=== PATIENT | female | born 1935 | race Caucasian/White ===

== ENCOUNTER 2018-05-30 13:05 | Observation (INO) ==
--- NOTE | 2018-05-30 13:10 | Emergency Department Note ---
ED Disposition Clinical Impression: Heat exhaustion, Vomiting Disposition: Still a Patient Condition on Discharge: Fair - Critical Care Critical Care Time: No Attestation: On , the high probability of a clinically significant, sudden or life threatening deterioration of the following system(s) required my full and direct attention, intervention and personal management. The time I documented below is in addition to time spent performing reported procedures but includes the following listed in this critical care notation. Medical Decision Making - [place] Inquiry Pt receiving controlled substance: No [place] was queried for this patient: No Vital Signs: 05/30/18 13:05 Temperature 98.3 F Temperature Source Oral Pulse Rate [Radial] 16 L Respiratory Rate 20 Blood Pressure [Right Arm] 131/59 Blood Pressure Mean [Right Arm] 83 Blood Pressure Source [Right Arm] Automatic Cuff Blood Pressure Position [Right Arm] Sitting 02 Sat by Pulse Oximetry 95 Oxygen Delivery Method Room Air - Lab Data Lab Results 05/30/18 13:15: WBC 7.4, RBC 4.97, Hgb 15.4, Hct 48.6 H, MCV 97.7, MCH 31.0, MCHC 31.7 L, RDW 12.7, Plt Count 317, MPV 7.9, Neut % (Auto) 74.8, Lymph % (Auto ) 18.1, [place] % (Auto) 4.7, Eos % (Auto) 1.8, Baso % (Auto) 0.6, Neut # (Auto) 5.5, Lymph # (Auto) 1.3, [place] # (Auto) 0.4, Eos # (Auto) 0.1, Baso # (Auto) 0.0 05/30/18 13:15: Sodium 138, Potassium 4.2, Chloride 103, Carbon Dioxide 27, Anion Gap 12.2, BUN 25 H, Creatinine 1.16 H, Estimated Creat Clear 32, Estimated GFR 45 L, Est GFR ( Amer) 54 L, Glucose 161 H, Calcium 9.3, Total Bilirubin 0.4, AST 30, ALT 91 H, Alkaline Phosphatase 85, Total Protein 8.2, Albumin 3.7, Globulin 4.5 H, Albumin/Globulin Ratio 0.8 L 05/30/18 13:15: PT 9.8, INR 0.95, APTT 24.4 05/30/18 13:15: Magnesium 2.2, Total Creatine Kinase 136, CK-MB (CK-2) 2.2, CK- MB (CK-2) Rel Index 1.6, Troponin I < 0.02 05/30/18 13:15: Lactic Acid 1.1 05/30/18 13:15: Acetone Level None detected 05/30/18 13:25: Specimen Source Right radial, O2 % 28% nc, ABG pH 7.44, ABG pCO2 36.8, ABG pO2 67.9 L, ABG HCO3 24.3, ABG Total CO2 25.4, ABG O2 Saturation 94, ABG Base Excess 0.1, [place] Test Acceptable Result diagrams: 05/30/18 13:15 05/30/18 13:15 Orders (Tests/Meds): ED MEDICATIONS Discontinued Medications Generic Name Dose Route Start Last Admin Trade Name Freq PRN Reason Stop Dose Admin Sodium Chloride 1,000 mls @ 999 mls/hr 05/30/18 13:15 05/30/18 14:22 Sod Chlor 0.9% 1000ml Bag IV 05/30/18 14:15 999 mls/hr .Q1H1M KAYLI Administration ORDERS Category Date Time Status Acute abdomen XR series [XR acute abdomen series] Stat Exams 05/30/18 13:12 Taken Urinalysis and Microscopic Stat Lab 05/30/18 13:07 Ordered ECG Request by /Ashlyn Stat Y 05/30/18 13:11 Ordered - Radiology Data #1 Image(s): Chest, Abdomen Image Reviewed: Yes I reviewed the patient's radiology image Chest x-ray shows postop changes no acute findings. Abdominal x-ray positive constipation no free air no fluid level. - CT Data CT Scan: Head Time Received: 14:[address] Reviewed: Yes: I have viewed the radiologist's interpretation Medical Decision Narrative: The patient remained stable I called her primary care physician Dr. connor discussed with him her presentation and possible heat exhaustion he agreed to admit her for IV fluid therapy and possible social service assistant,. Nausea/Vomiting/Diarrhea HPI - General Stated complaint: Nausea Time Seen by Provider: 05/30/18 13:07 Mode of Arrival: EMS Source of Information: Patient, Relative - History of Present Illness HPI Narrative: 83 years old white female with history of valve replaced, hypertension hyperlipidemia and diabetes. Status post cholecystectomy appendectomy and hysterectomy. 2 weeks ago she fell and had a contusion on the right forehead, 5 days ago she started vomiting of green material with no hemoptysis no hematemesis no coffee-ground emesis no melanotic stool no bleeding per rectum. She she denies have diarrhea. He has missed her appointment with Dr. connor. She lives with her and and on air-conditioned house and he is awaiting heart surgery. Per EMS the house was too high the temperature was 105 inside the house. MD complaint: nausea, vomiting Onset (ago): day(s) (5 days) Description of Vomiting: bilious Associated Abdominal Pain: No Consistency: intermittent Relieving factors: none Exacerbating factors: none Associated symptoms: denies other symptoms - Related Data Home Medications Medication Instructions Recorded Confirmed Gabapentin [Gabapentin 300mg Cap] 300 mg PO TID 05/30/18 05/30/18 Hydrocod/Acet 5/325 mg [[place] 1 tab PO Q4HP PRN 05/30/18 05/30/18 5/325mg tablet] Insulin Aspart [Novolog] 1 dose SQ BID 05/30/18 05/30/18 Insulin Detemir [Levemir 100 1 dose SQ ACHS 05/30/18 05/30/18 units/mL 10mL vial] Lisinopril [Lisinopril 2.5mg Tab] 2.5 tab PO DAILY 05/30/18 05/30/18 diazePAM [Valium 2mg tablet] 2 mg PO DAILY 05/30/18 05/30/18 Allergies Allergy/AdvReac Type Severity Reaction Status Date / Time Penicillins [PENICILLINS] Allergy Intermediate I-RASH Verified 05/30/18 13:54 [facility] History I have reviewed the patient's past medical history: Yes ROS Obtained: Yes All systems reviewed & no additional complaints Physical Exam - General General appearance: alert, in no apparent distress - Head Head exam: normocephalic, normal inspection, other (There are old bruising on the right forehead. ) - Eye Eye exam: Present: normal appearance, PERRL, EOMI - ENT ENT exam: Present: normal exam, normal oropharynx, mucous membranes moist, TM's normal bilaterally, normal external ear exam, other (There is abrasions on the right earlobe due to titching and secondary to bug bite) - Neck Neck exam: Present: normal inspection, full ROM, trachea midline. Absent: meningismus, lymphadenopathy - Chest Chest inspection: Present: normal inspection, symmetric chest wall rise. Absent : tenderness - Respiratory Respiratory exam: Present: normal lung sounds bilaterally. Absent: respiratory distress - Cardiovascular Cardiovascular exam: Present: regular rate, normal rhythm. Absent: JVD - Abdominal Exam Abdominal exam: Present: soft, normal bowel sounds, other (Soft obese nontender with the scars of previous surgeries no guarding no rigidity no focal tenderness no rebound no cross tenderness. ). Absent: distention, tenderness, guarding, rebound, rigidity, tenderness at [place]'s Point - External exam: Present: normal external exam - Extremities Exam Extremities exam: Present: normal inspection, full ROM, normal capillary refill. Absent: calf tenderness - Back Exam Back exam: Present: normal inspection. Absent: tenderness - Neurological Exam Neurological exam: Present: alert, oriented X3, CN II-XII intact, motor sensory deficit, reflexes normal - Psychiatric Psychiatric exam: Present: normal affect, normal mood - Skin Skin exam: Present: warm, dry, intact, normal color - Lymphatic Lymphatic Findings: no adenopathy
[2018-05-30 13:30] LABS: ABG Base Excess 0.1 mmol/L (-2.4-2.3); ABG HCO3 24.3 mmhg (22.0-26.0); ABG Oxygen Saturation 94 % (90-100); ABG PCO2 36.8 mmhg (35.0-45.0); ABG PH 7.44 mmol/L (7.35-7.45); ABG PO2 67.9 mmhg (80-100); ABG TCO2 25.4 mmhg (23-27)
[2018-05-30 13:31] LABS: Basophils % 0.6 % (0.1-2.0); Eosinophils # 0.1 K/mm3 (0.0-0.4); Eosinophils % 1.8 % (0.1-12.0); Hematocrit 48.6 % (37.0-47.0); Hemoglobin 15.4 g/dL (12.2-16.2); Lymphocytes # 1.3 K/mm3 (0.7-4.5); Lymphocytes % 18.1 K/mm3 (10-50); Mean Corpuscular HGB Conc 31.7 g/dL (31.8-35.4); Mean Corpuscular Volume 97.7 fl (81-99); Mean Platelet Volume 7.9 fl (7.4-10.4); Monocytes # 0.4 K/mm3 (0.1-1.0); Monocytes % 4.7 % (1.7-9.3); Neutrophils # 5.5 K/mm3 (1.8-7.8); Neutrophils % 74.8 % (37.0-80.0); Platelet Count 317 K/mm3 (142-424); Red Blood Count 4.97 M/mm3 (4.20-5.40); Red Cell Distribution Width 12.7 % (11.5-17.5); White Blood Count 7.4 K/mm3 (4.8-10.8)
[2018-05-30 13:33] LABS: Allen's Test Acceptable; Oxygen 28% NC %
[2018-05-30 13:40] LABS: Activated Partial Thrombo Time 24.4 seconds (23.6-34.0); INR 0.95 (0.9-1.1); Prothrombin Time 9.8 seconds (9.4-11.8)
[2018-05-30 13:43] LABS: Albumin Level 3.7 gm/dL (3.4-5.0); Albumin/Globulin Ratio 0.8 (1.1-1.8); Anion Gap 12.2 mEq/L (5-15); Bilirubin,Total 0.4 mg/dL (0.2-1.0); Calcium 9.3 mg/dL (8.5-10.1); Globulin 4.5 gm/dl (1.3-3.2); Potassium 4.2 mmoL/L (3.5-5.1); Total Protein,Serum 8.2 gm/dL (6.4-8.2)
[2018-05-30 13:53] LABS: Creatine Kinase 136 U/L (26-192)
--- NOTE | 2018-05-30 21:47 | History & Physical Report ---
*Admission Date: 05/30/18 *Chief complaint: Vomiting *History of present illness: This 82-year-old white female is diabetic and has chronic back pain. She states that she started vomiting 6 days ago. She says she may have vomited 20 times yesterday and 5 today before she presented in the emergency room. When the ambulance came to her house to pick her up the temperature in the house was reported to be 105. Her is also ill and awaiting heart surgery. She has a long medication list. She states that her sugars have not been bad lately but that she has not been eating much at all. [facility] History Medical History: Reports:: Atherosclerotic Heart Disease, Chronic Obstructive Pulmonary Disease (COPD), Coronary Artery Disease, Dementia (Mild. Treated with Namenda and Aricept), Diabetes Mellitus Type 2, Hypertension Denies:: Diabetes Mellitus Type 1 Other Medical History: Reports: Arthritis, Osteoporosis (With vertebral fractures), Thyroid Disease (Takes levothyroxine 50 mcg) Other Surgeries: Yes: BSO, Cardiac Catheterization, Colonoscopy, Coronary Stent , Hysterectomy-Partial Fractures: Yes (Ankle with pinning 2000. Shoulder repair 2004. Left shoulder fracture Jun) - *Social History Smoking Status: Current every day smoker Tobacco Type: cigarettes # Packs/Day (cigarettes): 1 Alcohol Intake: never Substance Use Type: denies use - Psychiatric History Expresses thoughts of harming self/others: None Suicide Plan Description: No Plan *Family Hx:: Coronary Artery Disease Comment: Her son of myocardial infarction. Her mother in childbirth. Review of Systems - Constitutional Reports anorexia, Reports weakness, Denies chills, Denies fever(s) - Eyes Denies change in vision - ENT Denies mouth lesions, Denies pain with swallowing - *Cardiovascular Reports shortness of breath, Reports shortness of breath with activity, Denies chest pain - *Respiratory Reports shortness of breath with activity, Denies chest congestion - *Gastrointestinal Reports abdominal pain, Reports change in bowel habits (Infrequent stooling. Some looseness), Reports vomiting - *Genitourinary Reports urinary incontinence - *Musculoskeletal Reports back pain, Reports deformity, Reports neck pain - Integumentary/Breasts Reports bleeding lesions, Denies yellowing of the skin Comments: Of the scalp. Nursing reported head lice. - *Neurologic Reports unsteadiness, Reports memory loss, Reports weakness, Denies seizure- like activity - Psychiatric Reports anxiety, Reports depression, Reports memory loss - Endocrine Denies increased thirst, Denies increased urination - Hematologic/Lymphatic Reports easy bruising - Allergic/Immunologic Denies itchy eyes, Denies lip swelling Meds Home Medications Medication Instructions Recorded Confirmed Type Gabapentin [Gabapentin 300mg Cap] 300 mg PO TID 05/30/18 05/30/18 History Hydrocod/Acet 5/325 mg [[place] 1 tab PO Q4HP PRN 05/30/18 05/30/18 History 5/325mg tablet] Insulin Aspart [Novolog] 1 dose SQ BID 05/30/18 05/30/18 History Insulin Detemir [Levemir 100 1 dose SQ ACHS 05/30/18 05/30/18 History units/mL 10mL vial] Lisinopril [Lisinopril 2.5mg Tab] 2.5 tab PO DAILY 05/30/18 05/30/18 History Memantine HCl [Memantine 10mg 10 mg PO BID 05/30/18 05/30/18 History Tablet] diazePAM [Valium 2mg tablet] 2 mg PO DAILY 05/30/18 05/30/18 History Allergies Allergy/AdvReac Type Severity Reaction Status Date / Time Penicillins [PENICILLINS] Allergy Intermediate I-RASH Verified 05/30/18 13:54 Exam Vital signs and Labs for Last 24 Hours: Temp Pulse Resp BP Pulse Ox 98.2 F 61 18 132/90 93 L 05/30/18 20:00 05/30/18 20:00 05/30/18 20:00 05/30/18 20:00 05/30/18 20:00 Laboratory Results - last 24 hr 05/30/18 13:15: WBC 7.4, RBC 4.97, Hgb 15.4, Hct 48.6 H, MCV 97.7, MCH 31.0, MCHC 31.7 L, RDW 12.7, Plt Count 317, MPV 7.9, Neut % (Auto) 74.8, Lymph % (Auto ) 18.1, [place] % (Auto) 4.7, Eos % (Auto) 1.8, Baso % (Auto) 0.6, Neut # (Auto) 5.5, Lymph # (Auto) 1.3, [place] # (Auto) 0.4, Eos # (Auto) 0.1, Baso # (Auto) 0.0 05/30/18 13:15: Sodium 138, Potassium 4.2, Chloride 103, Carbon Dioxide 27, Anion Gap 12.2, BUN 25 H, Creatinine 1.16 H, Estimated Creat Clear 32, Estimated GFR 45 L, Est GFR ( Amer) 54 L, Glucose 161 H, Calcium 9.3, Total Bilirubin 0.4, AST 30, ALT 91 H, Alkaline Phosphatase 85, Total Protein 8.2, Albumin 3.7, Globulin 4.5 H, Albumin/Globulin Ratio 0.8 L 05/30/18 13:15: PT 9.8, INR 0.95, APTT 24.4 05/30/18 13:15: Magnesium 2.2, Total Creatine Kinase 136, CK-MB (CK-2) 2.2, CK- MB (CK-2) Rel Index 1.6, Troponin I < 0.02 05/30/18 13:15: Lactic Acid 1.1 05/30/18 13:15: Acetone Level None detected 05/30/18 13:25: Specimen Source Right radial, O2 % 28% nc, ABG pH 7.44, ABG pCO2 36.8, ABG pO2 67.9 L, ABG HCO3 24.3, ABG Total CO2 25.4, ABG O2 Saturation 94, ABG Base Excess 0.1, [place] Test Acceptable 05/30/18 16:58: POC Glucose 123 H 05/30/18 17:06: Troponin I < 0.02 I & O for Last 24 hours: Intake & Output 05/28/18 05/29/18 05/30/18 05/31/18 11:59 11:59 11:59 11:59 Intake Total 240 / 240 Balance 240 / 240 Weight 115 lb 2 oz - Constitutional no acute distress, chronically ill appearing Comments: Skin does look dry. - *Routine HEENT Exam Head: Present: normocephalic Eye: Present: PERRL (Eyes seem a bit sunken) ENT: Present: mucous membranes dry - *Routine Neck Exam Absent: meningismus - *Routine Respiratory Exam Present: CTA bilaterally - *Routine Cardiovascular Exam Present: RRR - *Routine Abdominal Exam Present: tenderness (Seems more at left lower quadrant.), surgical scars. Absent: distended, rebound, rigid, mass - *Routine Extremities Exam Absent: edema - Routine Back/Spine/Pelvis Exam Back/Spine: Present: kyphosis - *Routine Skin Exam Present: dry - *Routine Neurological Exam Present: alert, oriented X3 No focal deficit. H&P: Result - Labs Labs: Short CBC 05/30/18 Range/Units 13:15 WBC 7.4 (4.8-10.8) K/mm3 Hgb 15.4 (12.2-16.2) g/dL Hct 48.6 H (37.0-47.0) % Plt Count 317 (142-424) K/mm3 BMP 05/30/18 13:15 Sodium 138 Potassium 4.2 Chloride 103 Carbon Dioxide 27 BUN 25 H Creatinine 1.16 H Glucose 161 H Calcium 9.3 Cardiac Enzymes 05/30/18 05/30/18 Range/Units 13:15 17:06 Total Creatine Kinase 136 (26-192) U/L CK-MB (CK-2) 2.2 (0.0-3.6) ng/ml Troponin I < 0.02 < 0.02 (0.00-0.06) ng/ml Liver Function 05/30/18 Range/Units 13:15 Total Bilirubin 0.4 (0.2-1.0) mg/dL AST 30 (15-37) U/L ALT 91 H (12-78) U/L Alkaline Phosphatase 85 (46-116) U/L Albumin 3.7 (3.4-5.0) gm/dL Assessment and Plan (1) Diabetes mellitus Current visit: Yes Status: Acute Category: Medical Code(s): E11.9 - Type 2 diabetes mellitus without complications (2) Insulin dependent diabetes mellitus Current visit: Yes Status: Acute Category: Medical Code(s): E11.9 - Type 2 diabetes mellitus without complications; Z79.4 - [employer] (current) use of insulin (3) Hypothyroidism (acquired) Current visit: Yes Status: Acute Category: Medical Code(s): E03.9 - Hypothyroidism, unspecified (4) Chronic pain Current visit: Yes Status: Acute Category: Medical Code(s): G89.29 - Other chronic pain (5) Arteriosclerotic cardiovascular disease Current visit: Yes Status: Acute Category: Medical Code(s): I25.10 - Atherosclerotic heart disease of [place] coronary artery without angina pectoris (6) Presence of stent in coronary artery in patient with coronary artery disease Current visit: Yes Status: Acute Category: Medical Code(s): I25.10 - Atherosclerotic heart disease of [place] coronary artery without angina pectoris ; Z95.5 - Presence of coronary angioplasty implant and graft (7) Hypertension Current visit: Yes Status: Acute Category: Medical Code(s): I10 - Essential (primary) hypertension (8) Mild dementia Current visit: Yes Status: Acute Category: Medical Code(s): F03.90 - Unspecified dementia without behavioral disturbance (9) Heat exhaustion Current visit: Yes Status: Acute Category: Medical Code(s): T67.5XXA - Heat exhaustion, unspecified, initial encounter (10) Vomiting Current visit: Yes Status: Acute Category: Medical Code(s): R11.10 - Vomiting, unspecified
[2018-05-31 05:36] LABS: Basophils % 0.6 % (0.1-2.0); Eosinophils # 0.1 K/mm3 (0.0-0.4); Eosinophils % 2.1 % (0.1-12.0); Hematocrit 45.5 % (37.0-47.0); Hemoglobin 14.4 g/dL (12.2-16.2); Lymphocytes # 1.8 K/mm3 (0.7-4.5); Lymphocytes % 28.2 K/mm3 (10-50); Mean Corpuscular HGB Conc 31.6 g/dL (31.8-35.4); Mean Corpuscular Hemoglobin 31.3 pg (27.0-31.2); Mean Corpuscular Volume 98.9 fl (81-99); Mean Platelet Volume 7.9 fl (7.4-10.4); Monocytes # 0.4 K/mm3 (0.1-1.0); Monocytes % 6.5 % (1.7-9.3); Neutrophils # 3.9 K/mm3 (1.8-7.8); Neutrophils % 62.7 % (37.0-80.0); Platelet Count 283 K/mm3 (142-424); Red Cell Distribution Width 12.7 % (11.5-17.5); White Blood Count 6.2 K/mm3 (4.8-10.8)
[2018-05-31 05:53] LABS: Albumin/Globulin Ratio 0.8 (1.1-1.8); Anion Gap 8.4 mEq/L (5-15); Bilirubin,Total 0.4 mg/dL (0.2-1.0); Calcium 8.4 mg/dL (8.5-10.1); Globulin 3.9 gm/dl (1.3-3.2); Potassium 4.4 mmoL/L (3.5-5.1); Total Protein,Serum 6.9 gm/dL (6.4-8.2)
--- NOTE | 2018-05-31 07:33 | Pharmacy Consult Notes ---
[facility] Pharmacy VTE Monitoring - Patient Demographics Admission date: 05/30/18 Report Date: 05/31/18 Time: 07:33 Allergies/Adverse Reactions: Patient Allergies Penicillins [PENICILLINS] Allergy (Intermediate, Verified 05/30/18 13:54) I-RASH Height: 1.63 m Weight: 52.22 kg Patient Problems: Current Active Problems Heat exhaustion (Acute) Vomiting (Acute) Diabetes mellitus (Acute) Insulin dependent diabetes mellitus (Acute) Hypothyroidism (acquired) (Acute) Chronic pain (Acute) Arteriosclerotic cardiovascular disease (Acute) Presence of stent in coronary artery in patient with coronary artery disease ( Acute) Hypertension (Acute) Mild dementia (Acute) - VTE Risk Labs: VTE Related Lab Results Hgb 14.4 g/dL (12.2-16.2) 05/31/18 04:55 Hct 45.5 % (37.0-47.0) 05/31/18 04:55 Plt Count 283 K/mm3 (142-424) 05/31/18 04:55 PT 9.8 seconds (9.4-11.8) 05/30/18 13:15 INR 0.95 (0.9-1.1) 05/30/18 13:15 APTT 24.4 seconds (23.6-34.0) 05/30/18 13:15 BUN 18 mg/dL (7-18) D 05/31/18 04:55 Creatinine 0.92 mg/dL (0.55-1.02) D 05/31/18 04:55 Estimated Creat Clear 36 mL/min (0-300) 05/31/18 04:55 Was VTE Risk Assessment Performed: Yes VTE Score: 1 VTE Risk Level: Very Low Risk - Prophylaxis VTE Prophylaxis Ordered?: Yes Types of VTE Prophylaxis: TEDS Knee High Location of Applied Device: Bilateral Lower Extremeties - VTE Diagnosis Confirmed Treatment or plan recommended: Continue Current Treatment
--- NOTE | 2018-05-31 08:19 | Progress Note ---
Internal Medicine - PN: Subj *Date: 05/31/18 *Time: 08:16 Interval history: Patient states she is feeling better today. She is nauseated but is not vomiting. She did not feel like eating breakfast. She states she had a difficult time sleeping due to back pain. She is requesting some type of pain medication. She has also been picking at a scab on her right ear and would like something to put on this. Exam Vital signs and Labs for Last 24 Hours: Temp Pulse Resp BP Pulse Ox 98.0 F 52 L 18 121/31 93 L 05/31/18 07:52 05/31/18 07:52 05/31/18 07:52 05/31/18 07:52 05/31/18 07:52 Laboratory Results - last 24 hr 05/30/18 13:15: WBC 7.4, RBC 4.97, Hgb 15.4, Hct 48.6 H, MCV 97.7, MCH 31.0, MCHC 31.7 L, RDW 12.7, Plt Count 317, MPV 7.9, Neut % (Auto) 74.8, Lymph % (Auto ) 18.1, [place] % (Auto) 4.7, Eos % (Auto) 1.8, Baso % (Auto) 0.6, Neut # (Auto) 5.5, Lymph # (Auto) 1.3, [place] # (Auto) 0.4, Eos # (Auto) 0.1, Baso # (Auto) 0.0 05/30/18 13:15: Sodium 138, Potassium 4.2, Chloride 103, Carbon Dioxide 27, Anion Gap 12.2, BUN 25 H, Creatinine 1.16 H, Estimated Creat Clear 32, Estimated GFR 45 L, Est GFR ( Amer) 54 L, Glucose 161 H, Calcium 9.3, Total Bilirubin 0.4, AST 30, ALT 91 H, Alkaline Phosphatase 85, Total Protein 8.2, Albumin 3.7, Globulin 4.5 H, Albumin/Globulin Ratio 0.8 L 05/30/18 13:15: PT 9.8, INR 0.95, APTT 24.4 05/30/18 13:15: Magnesium 2.2, Total Creatine Kinase 136, CK-MB (CK-2) 2.2, CK- MB (CK-2) Rel Index 1.6, Troponin I < 0.02 05/30/18 13:15: Lactic Acid 1.1 05/30/18 13:15: Acetone Level None detected 05/30/18 13:25: Specimen Source Right radial, O2 % 28% nc, ABG pH 7.44, ABG pCO2 36.8, ABG pO2 67.9 L, ABG HCO3 24.3, ABG Total CO2 25.4, ABG O2 Saturation 94, ABG Base Excess 0.1, [place] Test Acceptable 05/30/18 16:58: POC Glucose 123 H 05/30/18 17:06: Troponin I < 0.02 05/30/18 20:07: POC Glucose 196 H 05/30/18 22:40: Troponin I < 0.02 05/31/18 04:55: Troponin I < 0.02 05/31/18 04:55: WBC 6.2, RBC 4.60, Hgb 14.4, Hct 45.5, MCV 98.9, MCH 31.3 H, MCHC 31.6 L, RDW 12.7, Plt Count 283, MPV 7.9, Neut % (Auto) 62.7, Lymph % (Auto ) 28.2, [place] % (Auto) 6.5, Eos % (Auto) 2.1, Baso % (Auto) 0.6, Neut # (Auto) 3.9, Lymph # (Auto) 1.8, [place] # (Auto) 0.4, Eos # (Auto) 0.1, Baso # (Auto) 0.0 05/31/18 04:55: Sodium 140, Potassium 4.4, Chloride 108 H, Carbon Dioxide 28, Anion Gap 8.4, BUN 18 D, Creatinine 0.92 D, Estimated Creat Clear 36, Estimated GFR 59, Est GFR ( Amer) 71 D, Glucose 135 H, Calcium 8.4 L, Magnesium 2.1, Total Bilirubin 0.4, AST 23, ALT 61 D, Alkaline Phosphatase 69, Total Protein 6.9, Albumin 3.0 L D, Globulin 3.9 H, Albumin/Globulin Ratio 0.8 L 05/31/18 05:57: POC Glucose 124 H I & O for Last 24 hours: Intake & Output 07/02/18 07/03/18 07/04/18 07/05/18 11:59 11:59 11:59 11:59 Intake Total 1569 / 1569 Output Total 400 / 400 Balance 1169 / 1169 Weight 115 lb 2 oz - Constitutional no acute distress - *Routine Respiratory Exam Present: CTA bilaterally - *Routine Cardiovascular Exam Present: RRR - *Routine Abdominal Exam Present: soft, normoactive bowel sounds, tenderness (diffuse) - *Routine Extremities Exam Absent: edema - *Routine Skin Exam Comments: right ear with a scab Assessment and Plan (1) Diabetes mellitus Current visit: Yes Status: Acute Category: Medical Code(s): E11.9 - Type 2 diabetes mellitus without complications (2) Insulin dependent diabetes mellitus Current visit: Yes Status: Acute Category: Medical Code(s): E11.9 - Type 2 diabetes mellitus without complications; Z79.4 - [facility] (current) use of insulin (3) Hypothyroidism (acquired) Current visit: Yes Status: Acute Category: Medical Code(s): E03.9 - Hypothyroidism, unspecified (4) Chronic pain Current visit: Yes Status: Acute Category: Medical Code(s): G89.29 - Other chronic pain (5) Arteriosclerotic cardiovascular disease Current visit: Yes Status: Acute Category: Medical Code(s): I25.10 - Atherosclerotic heart disease of [place] coronary artery without angina pectoris (6) Presence of stent in coronary artery in patient with coronary artery disease Current visit: Yes Status: Acute Category: Medical Code(s): I25.10 - Atherosclerotic heart disease of [place] coronary artery without angina pectoris ; Z95.5 - Presence of coronary angioplasty implant and graft (7) Hypertension Current visit: Yes Status: Acute Category: Medical Code(s): I10 - Essential (primary) hypertension (8) Mild dementia Current visit: Yes Status: Acute Category: Medical Code(s): F03.90 - Unspecified dementia without behavioral disturbance (9) Heat exhaustion Current visit: Yes Status: Acute Category: Medical Code(s): T67.5XXA - Heat exhaustion, unspecified, initial encounter (10) Vomiting Current visit: Yes Status: Acute Category: Medical Code(s): R11.10 - Vomiting, unspecified - Assessment and plan all Dx Assessment and Plan for all problems:: We will start on mupirocin cream for her ear and will discuss pain management with Dr. Heaton.
[2018-06-01 08:28] VITALS: BP 150/54
--- NOTE | 2018-06-01 08:42 | Progress Note ---
Internal Medicine - PN: Subj *Date: 06/01/18 *Time: 08:41 Interval history: Patient states she is feeling much better today. She did not rest well last night. She wants to go home and sleep in her own bed. She denies any pain today. Exam Vital signs and Labs for Last 24 Hours: Temp Pulse Resp BP Pulse Ox 98.3 F 63 16 150/54 94 L 06/01/18 08:00 06/01/18 08:00 06/01/18 08:00 06/01/18 08:00 06/01/18 08:00 Laboratory Results - last 24 hr 05/31/18 11:14: POC Glucose 122 H 05/31/18 16:17: POC Glucose 123 H 05/31/18 20:57: POC Glucose 142 H 06/01/18 05:23: POC Glucose 107 I & O for Last 24 hours: Intake & Output 05/29/18 05/30/18 05/31/18 06/01/18 11:59 11:59 11:59 11:59 Intake Total 1569 / 1569 2539 / 2539 Output Total 400 / 400 Balance 1169 / 1169 2539 / 2539 Weight 115 lb 2 oz 123 lb 9 oz - Constitutional no acute distress - *Routine Respiratory Exam Present: CTA bilaterally - *Routine Cardiovascular Exam Present: RRR - *Routine Abdominal Exam Present: soft, normoactive bowel sounds. Absent: tenderness - *Routine Extremities Exam Absent: edema Assessment and Plan (1) Diabetes mellitus Current visit: Yes Status: Acute Category: Medical Code(s): E11.9 - Type 2 diabetes mellitus without complications (2) Insulin dependent diabetes mellitus Current visit: Yes Status: Acute Category: Medical Code(s): E11.9 - Type 2 diabetes mellitus without complications; Z79.4 - truck terminal manager (current) use of insulin (3) Hypothyroidism (acquired) Current visit: Yes Status: Acute Category: Medical Code(s): E03.9 - Hypothyroidism, unspecified (4) Chronic pain Current visit: Yes Status: Acute Category: Medical Code(s): G89.29 - Other chronic pain (5) Arteriosclerotic cardiovascular disease Current visit: Yes Status: Acute Category: Medical Code(s): I25.10 - Atherosclerotic heart disease of [place] coronary artery without angina pectoris (6) Presence of stent in coronary artery in patient with coronary artery disease Current visit: Yes Status: Acute Category: Medical Code(s): I25.10 - Atherosclerotic heart disease of [place] coronary artery without angina pectoris ; Z95.5 - Presence of coronary angioplasty implant and graft (7) Hypertension Current visit: Yes Status: Acute Category: Medical Code(s): I10 - Essential (primary) hypertension (8) Mild dementia Current visit: Yes Status: Acute Category: Medical Code(s): F03.90 - Unspecified dementia without behavioral disturbance (9) Heat exhaustion Current visit: Yes Status: Acute Category: Medical Code(s): T67.5XXA - Heat exhaustion, unspecified, initial encounter (10) Vomiting Current visit: Yes Status: Acute Category: Medical Code(s): R11.10 - Vomiting, unspecified - Assessment and plan all Dx Assessment and Plan for all problems:: Possible discharge home today. Will discuss with Dr. Heaton.
--- NOTE | 2018-06-01 22:14 | Discharge Summary ---
General - General Admission date:: 05/30/18 Discharge date: 06/01/18 HPI HPI: This 82-year-old white female is diabetic and has chronic back pain. She states that she started vomiting 6 days ago. She says she may have vomited 20 times yesterday and 5 today before she presented in the emergency room. When the ambulance came to her house to pick her up the temperature in the house was reported to be 105. Her is also ill and awaiting heart surgery. She has a long medication list. She states that her sugars have not been bad lately but that she has not been eating much at all. Hospital Course Hospital Course: She was admitted for heat exhaustion and vomiting. She was started on IVF's and antiemetics. The patient's vomiting and nausea resolved and she was able to eat. Her pain medication was restarted. Her renal function improved and she felt much better. She was stable to be discharged home and an air conditioner was found for her home. Objective Vital signs: Temp Pulse Resp BP Pulse Ox 98.3 F 63 16 150/54 94 L 06/01/18 08:00 06/01/18 08:00 06/01/18 08:00 06/01/18 08:00 06/01/18 08:00 Narrative: - Constitutional no acute distress, chronically ill appearing Comments: Skin does look dry. - *Routine HEENT Exam Head: Present: normocephalic Eye: Present: PERRL (Eyes seem a bit sunken) ENT: Present: mucous membranes dry - *Routine Neck Exam Absent: meningismus - *Routine Respiratory Exam Present: CTA bilaterally - *Routine Cardiovascular Exam Present: RRR - *Routine Abdominal Exam Present: tenderness (Seems more at left lower quadrant.), surgical scars. Absent: distended, rebound, rigid, mass - *Routine Extremities Exam Absent: edema - Routine Back/Spine/Pelvis Exam Back/Spine: Present: kyphosis - *Routine Skin Exam Present: dry - *Routine Neurological Exam Present: alert, oriented X3 No focal deficit. Results Labs on day of discharge: Labs from last 24 hours 06/01/18 05:23 POC Glucose 107 DS: Diagnosis - Discharge Diagnosis (1) Diabetes mellitus Status: Acute (2) Insulin dependent diabetes mellitus Status: Acute (3) Hypothyroidism (acquired) Status: Acute (4) Chronic pain Status: Acute (5) Arteriosclerotic cardiovascular disease Status: Acute (6) Presence of stent in coronary artery in patient with coronary artery disease Status: Acute (7) Hypertension Status: Acute (8) Mild dementia Status: Acute (9) Heat exhaustion Status: Acute (10) Vomiting Status: Acute Discharge Plan - Patient Discharge Instructions ACTIVITY: Continue current activity DIET: continue same diet Patient Instructions: DI for Heat Exhaustion and Heat Stroke, DI for Head Lice - Follow up Plan Follow up with: Katya Heaton MD [Family Provider] - Disposition: Home, Self-Halfway Medications: Home Medications Medication Instructions Recorded Confirmed Type Gabapentin [Gabapentin 300mg Cap] 300 mg PO TID 05/30/18 05/30/18 History Hydrocod/Acet 5/325 mg [[place] 1 tab PO TIDP PRN 05/30/18 05/31/18 History 5/325mg tablet] Insulin Aspart [Novolog] 0 units SQ DIRECTED 05/30/18 05/31/18 History Insulin Detemir [Levemir 100 25 units SQ 1700 05/30/18 05/31/18 History units/mL 10mL vial] Lisinopril [Lisinopril 2.5mg Tab] 2.5 mg PO DAILY 05/30/18 06/01/18 History Memantine HCl [Memantine 10mg 10 mg PO BID 05/30/18 05/30/18 History Tablet] diazePAM [Valium 2mg tablet] 2 mg PO TIDP PRN 05/30/18 05/31/18 History Donepezil HCl [Aricept 10mg tablet] 10 mg PO HS 05/31/18 05/31/18 History Ferrous Sulfate [Iron] 325 mg PO BID 05/31/18 05/31/18 History Levothyroxine Sodium 50 mcg PO DAILY 05/31/18 05/31/18 History [Levothyroxine 50mcg (0.05mg) Tab] Metoclopramide HCl [Reglan 5mg 5 mg PO TID 05/31/18 05/31/18 History Tablet] Mirabegron [Myrbetriq] 50 mg PO DAILY 05/31/18 05/31/18 History Simvastatin 20 mg PO BID 05/31/18 05/31/18 History raNITIdine HCl [Ranitidine HCl] 150 mg PO DAILY 05/31/18 05/31/18 History Prescriptions/Medication Reconciliation: Continue Gabapentin [Gabapentin 300mg Cap] 300 mg PO TID Insulin Detemir [Levemir 100 units/mL 10mL vial] 25 units SQ 1700 Insulin Aspart [Novolog] 0 units SQ DIRECTED Lisinopril [Lisinopril 2.5mg Tab] 2.5 mg PO DAILY Hydrocod/Acet 5/325 mg [[place] 5/325mg tablet] 1 tab PO TIDP PRN PRN Reason: PAIN diazePAM [Valium 2mg tablet] 2 mg PO TIDP PRN PRN Reason: Anxiety Memantine HCl [Memantine 10mg Tablet] 10 mg PO BID Levothyroxine Sodium [Levothyroxine 50mcg (0.05mg) Tab] 50 mcg PO DAILY Mirabegron [Myrbetriq] 50 mg PO DAILY raNITIdine HCl [Ranitidine HCl] 150 mg PO DAILY Metoclopramide HCl [Reglan 5mg Tablet] 5 mg PO TID Donepezil HCl [Aricept 10mg tablet] 10 mg PO HS Ferrous Sulfate [Iron] 325 mg PO BID Simvastatin 20 mg PO BID
== END 2018-06-01 10:05 | disposition home or self-care (01) ==
LOC: 2ND 13:05 → ER 13:05 → 2ND 15:30
PROVIDERS: ADMIT Family Medicine; ATTEND Family Medicine